=== PATIENT | male | born 1985 | race Caucasian/White ===

== ENCOUNTER 2021-07-12 16:52 | Emergency (ER) | payer OTHER, SELFPAY ==
[2021-07-12 17:00] VITALS: BP 152/90; PULSE 88; RESP 20; TEMP 37.1; O2SAT 96
--- NOTE | 2021-07-12 17:34 | ED.SKABFB ---
HPI - Skin/Abscess/Foreign Bdy General Chief complaint: Skin/Abscess/Foreign Body Stated complaint: right pinky lac Time Seen by Provider: 07/12/21 17:21 Source: patient and RN notes reviewed Mode of arrival: ambulatory Limitations: no limitations History of Present Illness HPI narrative: Patient presents today complaining of a laceration to the right fifth finger that was sustained just prior to arrival. Patient has been moving homes and got his finger caught between a box spring and the end of his tailgate, cutting his finger on the tailgate. He is up-to-date on his tetanus vaccine. Denies numbness or tingling. Currently rates pain 12/07. MD complaint: laceration Related Data Allergies Allergy/AdvReac Type Severity Reaction Status Date / Time No Known Allergies Allergy Verified 07/12/21 17:09 Review of Systems Review of Systems: CONSTITUTIONAL: Denies body aches, fever, chills, or sweats. EYES: Denies visual changes, redness, or discharge. ENT: Denies rhinorrhea, congestion, sore throat, or otalgia. CARDIOVASCULAR: Denies chest pain, palpitations, or edema. RESPIRATORY: Denies cough or dyspnea. GASTROINTESTINAL: Denies abdominal pain, nausea, vomiting, or diarrhea. GENITOURINARY: Denies dysuria or hematuria. SKIN: Denies rash, itching. + Laceration to right fifth finger MUSCULOSKELETAL: Denies back pain, joint pain, or myalgia. NEUROLOGIC: Denies headache, numbness, tingling, or weakness. PSYCH: Denies depression or anxiety. [facility] Social History Social History Gender identity (if verbalized by the patient): Male Comments At time of signature, I have reviewed and agree with nursing past medical, surgical, social and family history unless otherwise noted. Please see nursing chart for further information. There is no relevant family history pertinent to the presenting complaint Exam Narrative: GENERAL: Well-appearing, well-nourished, and in no acute distress. HEAD: Normocephalic, atraumatic. EYES: EOMI. No redness or drainage. Conjunctivae normal. ENT: Mucous membranes pink and moist. NECK: Normal AROM. CHEST: No respiratory distress. EXTREMITIES: Normal range of motion. No edema. SKIN: Warm, dry, no rash. Capillary refill normal. Normal skin turgor. 7 mm partial-thickness flap laceration to the base of the fingernail of the right fifth finger. No active bleeding. Distal sensation intact. Capillary refill normal. Full active range of motion. NEURO: No focal deficits. Alert and oriented x3. Gait steady. PSYCH: Normal affect. No signs of depression or anxiety. Course Vital Signs Vital signs: Vital Signs Temperature 98.7 F 07/12/21 17:00 Pulse Rate 88 07/12/21 17:00 Respiratory Rate 20 07/12/21 17:00 Blood Pressure 152/90 H 07/12/21 17:00 Pulse Oximetry 96 07/12/21 17:00 Temperature 98.7 F 07/12/21 17:00 Pulse Rate 88 07/12/21 17:00 Respiratory Rate 20 07/12/21 17:00 Blood Pressure 152/90 H 07/12/21 17:00 Pulse Oximetry 96 07/12/21 17:00 Reviewed. Pt has been instructed to follow up with his PCP regarding his elevated blood pressure today. Procedures Laceration Laceration 1: Date: 07/12/21 Time: 17:34 Site: upper extremity Side (If applicable): right Size (cm): 0.5 Description: flap Depth: simple, single layer ====== Skin Level ====== Skin layer closed with: dermabond ====== Subcutaneous Layer ====== ====== Muscle Layer ====== ====== Tendon Layer ====== MDM - Skin/Abscess/Foreign Bdy Differential Diagnosis Differential diagnosis: Likely other (Laceration, skin avulsion, abrasion) Critical Care Time Critical Care Time Critical Care Time: No Discharge Plan Discharge Clinical Impression: Flap laceration of skin Patient Disposition: Home, Self-Care Condition: Stable Instructions: Finger Laceration (ED), S
== END 2021-07-12 17:38 | disposition home or self-care (01) ==
PROVIDERS: Emergency Provider Nurse Practitioner
DX: S61.216A Laceration without foreign body of right little finger without damage to nail, initial encounter (principal); W45.8XXA Other foreign body or object entering through skin, initial encounter; Y93.E6 Activity, residential relocation
CPT/HCPCS: 12001; 99212; G0463